=== PATIENT | female | born 1985 | race Hispanic/Latino ===

== ENCOUNTER 2018-02-05 23:22 | Emergency (ER) | payer MEDICAID ==
[2018-02-05 23:42] VITALS: BP 122/83; PULSE 114; RESP 20; TEMP 98; O2SAT 99
--- NOTE | 2018-02-06 00:26 | C.PDOC ---
History Of Present Illness 32 year old female presents to the ER with a complaint of a diffuse, puritic rash to b/l lower leg and abdomen for the past 4 days. Patient believes she has an allergy but she is unsure of allergens. Denies fever, SOB, or recent travel. Time Seen by Provider: 02/05/18 23:45 Chief Complaint (Nursing): Abnormal Skin Integrity History Per: Patient History/Exam Limitations: no limitations Onset/Duration Of Symptoms: Days Location Of Injury: Right: Leg, Left: Leg, Anterior: Abdomen Quality Of Symptoms: Itching Recent travel outside of the [place]: No Past Medical History Reviewed: Historical Data, Nursing Documentation, Vital Signs Vital Signs: Last Vital Signs Temp 98 F 02/05/18 23:37 Pulse 114 H 02/05/18 23:37 Resp 20 02/05/18 23:37 BP 122/83 02/05/18 23:37 Pulse Ox 99 02/06/18 02:52 Family History: States: Unknown Family Hx - Social History Hx Tobacco Use: No Hx Alcohol Use: No Hx Substance Use: No - Immunization History Hx Tetanus Toxoid Vaccination: No Hx Influenza Vaccination: No Hx Pneumococcal Vaccination: No Review Of Systems Constitutional: Negative for: Fever, Chills Respiratory: Negative for: Shortness of Breath Skin: Positive for: Rash Physical Exam - Physical Exam Appears: Non-toxic Skin: Warm, Dry, Rash (Diffuse erythematous maculopapular at different stages to lower extremities, buttock, lower back, abdomen, upper arms. No facial involvement, pustules, or vesicles.) Head: Atraumatic, Normacephalic Eye(s): bilateral: Normal Inspection Oral Mucosa: Moist Tongue: Normal Appearing, No Swelling Lips: Normal Appearing, No Swelling Throat: Normal, No Erythema, No Other (Swelling) Respiratory: Normal Breath Sounds, No Rales, No Rhonchi, No Stridor, No Wheezing Extremity: Normal ROM (x4) Pulses: Left Dorsalis Pedis: Normal, Right Dorsalis Pedis: Normal Neurological/Psych: Oriented x3 (x4), Normal Speech Gait: Steady ED Course And Treatment O2 Sat by Pulse Oximetry: 99 (Room air) Pulse Ox Interpretation: Normal Progress Note: Benadryl administered. Patient is resting comfortably in the ER in no acute distress with clear breath sounds, vitals are stable; will discharge home with instructions to follow up with PMD for dermatology referral. Disposition Counseled Patient/Family Regarding: Diagnosis, Need For Followup, Rx Given - Disposition Referrals: Duglas Allison MD [Medical Doctor] - Disposition: HOME/ ROUTINE Disposition Time: 00:23 Condition: STABLE Additional Instructions: Please follow up with PMD Take meds a directed Return to ER if worse Prescriptions: DiphenhydrAMINE [Benadryl] 50 mg PO Q6H #20 cap Triamcinolone Acetonide [Kenalog 0.025% cream] 1 applic TP BID #60 g Instructions: Skin Rash (DC) Forms: [employer] (Turkmen) - Clinical Impression Clinical Impression: Dermatitis - PA / [employer] / Resident Statement MD/DO has reviewed & agrees with the documentation as recorded. - Scribe Statement The provider has reviewed the documentation as recorded by the Scribrenuka Lazo All medical record entries made by the Scribrenuka were at my direction and personally dictated by me. I have reviewed the chart and agree that the record accurately reflects my personal performance of the history, physical exam, medical decision making, and the department course for this patient. I have also personally directed, reviewed, and agree with the discharge instructions and disposition.
== END 2018-02-06 00:30 | disposition home or self-care (01) ==
LOC: C.ER 23:22
DX: L30.9 Dermatitis, unspecified (principal)